=== PATIENT | female | born 2000 | race Caucasian/White ===

== ENCOUNTER 2021-04-17 06:12 | Emergency (ER) | payer OTHER ==
[2021-04-17 06:54] LABS: Clarity Cloudy (Clear); Glucose, Urine (Dipstick) Normal (Negative); Specific Gravity, Urine 1.015 (1.002-1.036); pH, Urine 6.5 (5.0-9.0)
[2021-04-17 06:55] LABS: Bilirubin Unable to Interpret (Negative); Blood, Urine Unable to Interpret (Negative); Ketone, Urine Unable to Interpret mg/dL (Negative); Leukocyte Unable to Interpret (Negative); Nitrite Unable to Interpret (Negative); Protein, Urine (Dipstick) Unable to Interpret mg/dl (Neg-Trace); Urobilinogen UNABLE TO INTERPRET mg/dL (Less than 2)
[2021-04-17 06:57] LABS: Pregnancy Test - Urine (BHCG) Negative (Negative); Pregu Control Background? CLEAR/WHITE (CLR/WHITE); Pregu Control Bar Appear? YES (CONTROL BAR); Specific Gravity 1.015 (1.002-1.036)
[2021-04-17 07:12] LABS: RBC/HPF Greater than 50 HPF (0-3)
[2021-04-17 07:13] LABS: Bacteria/HPF 1+ HPF (None Seen)
[2021-04-17] MEDS ORDERED: Sulfameth/Trimethoprim DS 800-160mg TAB ONE (07:14)
[2021-04-17] MEDS ORDERED: Phenazopyridine HCl 97.5 MG TABLET ONE (07:14)
== END 2021-04-17 09:22 | disposition home or self-care (01) ==
LOC: CSHERS 06:12
DX: N30.90 Cystitis, unspecified without hematuria (principal)
CPT/HCPCS: 81003; 81015; 81025; 87086; 99284